=== PATIENT | female | born 1975 | race Asian ===

== ENCOUNTER 2025-05-12 20:31 | Emergency (ER) | payer MEDICAID ==
[~2025-05-12] VITALS: Ht 160 cm; Wt 65.3 kg
[2025-05-13 00:07] VITALS: BP 74/79; TEMP 98.4; O2SAT 97
== END 2025-05-13 00:07 | disposition home or self-care (01) ==
LOC: ER 20:35
DX: J02.8 Acute pharyngitis due to other specified organisms (principal); B97.89 Other viral agents as the cause of diseases classified elsewhere; Z20.822 Contact with and (suspected) exposure to COVID-19
CPT/HCPCS: 99283; 87426; 87070; 87880; A4223; 86403-TC